=== PATIENT | male | born 1985 | race Caucasian/White ===

== ENCOUNTER 2021-12-27 15:19 | Emergency (ER) | payer OTHER, SELFPAY ==
--- NOTE | ~2021-12-27 | XR_ITS ---
EXAMINATION: XR foot RT min 3V EXAM DATE: 12/27/2021 16:08 INDICATION: NKI,Gen Plantar Pain With Ankle Flexion . TECHNIQUE: Right foot dorsoplantar, lateral and oblique projections obtained and reviewed. There is no prior study for comparison. FINDINGS: Right metatarsal bones unremarkable. There are no acute fractures or dislocations identifi ed. There is no subcutaneous gas. The soft tissue is unremarkable. There are no radiopaque foreig n bodies. IMPRESSION: 1. Unremarkable right foot exam. Reviewed, dictated and finalized at location G. 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
[2021-12-27 15:30] VITALS: BP 154/77; PULSE 94; RESP 16; TEMP 37.4; O2SAT 100
--- NOTE | 2021-12-27 15:56 | ED.EXTPRO ---
HPI - Extremity Problem General Chief complaint: Extremity Problem,Nontraumatic Stated complaint: right foot pain Time Seen by Provider: 12/27/21 15:48 Source: patient and RN notes reviewed Mode of arrival: ambulatory Limitations: no limitations History of Present Illness HPI Narrative: 36 year old male presents with concern for right foot pain and ankle swelling. He denies any direct injury or trauma. He reports he works on his feet and plays sports. He reports pain is to the lateral foot and worsens with weight bearing. He reports elevating the foot without relief. He denies warmth, open skin, or rash. He reports pain started three weeks ago but worsened in the last two days. MD Complaint: extremity pain and extremity swelling Related Data Home Medications Medication Instructions Recorded Confirmed No Home Medications 12/27/21 12/27/21 Allergies Allergy/AdvReac Type Severity Reaction Status Date / Time No Known Allergies Allergy Verified 12/27/21 15:37 Review of Systems Review of Systems: CONSTITUTIONAL: Denies malaise, chills, sweats, or fever. CARDIOVASCULAR: Denies chest pain, palpitations, or edema. RESPIRATORY: Denies cough or dyspnea. SKIN: Denies rash or itching. MUSCULOSKELETAL: Reports right ankle swelling, right foot pain. NEUROLOGIC: Denies numbness, weakness All systems reviewed & are unremarkable except as noted in HPI and below PMFSH Comments At time of signature, agree with nursing past medical, surgical, social and family history. There is no relevant family history pertinent to the presenting complaint Exam Narrative: GENERAL: Well-appearing, well-nourished, and in no acute distress. HEAD: Normocephalic, atraumatic. EYES: PERRLA, conjunctivae clear NECK: Supple. CHEST: Speaks in full sentences. No respiratory distress. HEART: Regular rate and rhythm. Normal and equal peripheral pulses. EXTREMITIES: Right foot, ankle, and digits have normal strength and sensation, normal range of motion. Moderate lateral ankle edema, no erythema or ecchymosis. No echymosis or edema to the foot. 5/5 strength with ankle and digit flexion and extension. Normal sensation with sensitivity to light touch and pain. Tenderness to the lateral foot. No open wounds, no skin tenting, no devitalized tissue or atrophy, no trophic changes, no obvious deformity, alignment normal, nearby joints and structures intact. Distal pulses palpable and equal bilaterally, skin warm, dry, pink. Capillary refill less than 3 seconds. SKIN: Warm, dry, no rash. NEURO: Alert and oriented x3. PSYCH: Normal mood and affect Course Course Emergency Course: Patient is aware of diagnosis, understands and agrees to treatment plan. Anticipatory guidance given. Patient agrees to follow-up as directed and is aware of reasons to seek care at the emergency department. Portions of this record may have been created with voice recognition software Level of Care: Express Care Visit Vital Signs Vital signs: Vital Signs Temperature 99.3 F 12/27/21 15:30 Pulse Rate 94 12/27/21 15:30 Respiratory Rate 16 12/27/21 15:30 Blood Pressure 154/77 H 12/27/21 15:30 Pulse Oximetry 100 12/27/21 15:30 Temperature 99.3 F 12/27/21 15:30 Pulse Rate 94 12/27/21 15:30 Respiratory Rate 16 12/27/21 15:30 Blood Pressure 154/77 H 12/27/21 15:30 Pulse Oximetry 100 12/27/21 15:30 Reviewed. Pt has been instructed to follow up with his primary care provider within the next week regarding his elevated blood pressure today. MDM - Extremity (Nontraumatic) MDM Narrative Medical decision making narrative: Patient's pain is consistent with musculoskeletal problem. No compartment syndrome noted. No concern for neurological or vascular problems. Exam findings and imaging show no acute concerns or changes; patient is non-toxic appearing and is in no distress. Patient is appropriate for outpatient treatment and follow-up. Imaging Data My impression
== END 2021-12-27 16:21 | disposition home or self-care (01) ==
PROVIDERS: Emergency Provider Nurse Practitioner Family
DX: M79.671 Pain in right foot (principal)
CPT/HCPCS: 73630; 99203; G0463

== ENCOUNTER 2023-02-20 08:40 | Emergency (ER) | payer OTHER, SELFPAY ==
[2023-02-20 08:46] VITALS: BP 154/96; PULSE 83; RESP 18; TEMP 37.2; O2SAT 99
[2023-02-20 08:50] VITALS: BP 154/96; PULSE 83; RESP 18; TEMP 37.2; O2SAT 99
--- NOTE | 2023-02-20 08:55 | ED.SKABFB ---
HPI - Skin/Abscess/Foreign Bdy General Chief complaint: Skin/Abscess/Foreign Body Stated complaint: Rash Source: patient and RN notes reviewed History of Present Illness HPI narrative: 37-year-old male presents urgent care with complaints of worsening of poison viktor. Patient states he believes he contacted last Saturday while working outside. Patient was seen on Saturday and prescribed a Medrol Dosepak. Patient states she this morning he woke up with redness and irritation to his face, mostly on the left side including eye swelling. Patient states his swelling and symptoms have improved since waking but still continues to be swollen. Patient denies any visual disturbance, extraocular movements pain, vomiting, fevers, chills, shortness of breath, or chest pain. Some parts of this dictation were generated by voice recognition software and may contain typographical and/or grammatical inaccuracies. Related Data Home Medications Medication Instructions Recorded Confirmed No Home Medications 12/27/21 12/27/21 Allergies Allergy/AdvReac Type Severity Reaction Status Date / Time No Known Allergies Allergy Verified 12/27/21 15:37 Review of Systems Review of Systems: Pertinent positives and pertinent negatives per HPI. PMFSH Comments At the time of my signature, I reviewed and agree with the nursing past medical, surgical, social, and family history. There is no relevant family history pertinent to the patient complaint. Exam Narrative: GENERAL: This is a well-nourished, well-developed patient, in no apparent distress. HEAD: normocephalic, atraumatic. EYES: Sclera clear/white. Vision is grossly intact. Left orbit slightly edematous. no drainage from eyes. EOM intact. EARS: External ears normal, auditory canals clear and without drainage, TMs normal without perforation. Hearing grossly intact. NOSE: External nose normal with no obvious nasal discharge, nares without redness, no rhinorrhea. THROAT: Mucous membranes moist, posterior pharynx clear. NECK: Neck supple, non-tender without lymphadenopathy, masses or thyromegaly. CARDIOVASCULAR: Regular rate RESPIRATORY: Clear to auscultation. Breath sounds equal bilaterally. No wheezes, rales, or rhonchi. SKIN: erythremic, blistering, rash, varies in size from upper and lower extremities and face and anterior neck. NEURO: awake, alert, and oriented to person, place and time. There were no obvious focal neurologic abnormalities. EXTREMITIES: No clubbing, cyanosis, or edema. No joint tenderness, effusion, or edema noted. BACK: Nontender without deformity or crepitance. No flank tenderness. Course Course Level of Care: Express Care Visit Vital Signs Vital signs: Vital Signs Temperature 99 F 02/20/23 08:46 Pulse Rate 83 02/20/23 08:46 Respiratory Rate 18 02/20/23 08:46 Blood Pressure 154/96 H 02/20/23 08:46 Pulse Oximetry 99 02/20/23 08:46 Oxygen Delivery Room Air 02/20/23 08:46 Temperature 99 F 02/20/23 08:50 Pulse Rate 83 02/20/23 08:50 Respiratory Rate 18 02/20/23 08:50 Blood Pressure 154/96 H 02/20/23 08:50 Pulse Oximetry 99 02/20/23 08:50 Oxygen Delivery Room Air 02/20/23 08:50 Reviewed MDM - Skin/Abscess/Foreign Bdy MDM Narrative Medical decision making narrative: Continue taking her steroids at as directed. Go to emergency department any new or worsening symptoms. Differential Diagnosis Differential diagnosis: Likely urticaria, cellulitis and contact dermatitis Critical Care Time Critical Care Time Critical Care Time: No Discharge Plan Discharge Clinical Impression: Contact dermatitis Qualifiers: Contact dermatitis type: unspecified Contact dermatitis trigger: unspecified trigger Qualified Code(s): L25.9 - Unspecified contact dermatitis, unspecified cause Patient Disposition: Home, Self-Care Condition: Stable Instructions: Iqra Lemus (ED) Additional Instructions: Continue taking her steroids at as directed.
[2023-02-20] MEDS: methylPREDNISolone SOD SUCC 125 MG VIAL IM (09:01)
== END 2023-02-20 09:11 | disposition home or self-care (01) ==
PROVIDERS: Emergency Provider Nurse Practitioner Family
DX: L25.9 Unspecified contact dermatitis, unspecified cause (principal)
CPT/HCPCS: 96372; 99213; G0463; J2930